=== PATIENT | male | born 1940 | race Caucasian/White ===

== ENCOUNTER 2016-12-16 07:59 | Inpatient (IN) | payer MEDICARE, OTHER ==
[2016-12-16] MEDS ORDERED: ASPIRIN 325 MG TABLET ONE ×2 (08:18→08:20)
[2016-12-16] MEDS ORDERED: LORAZEPAM 1 MG TABLET ONE (08:19)
[2016-12-16] MEDS ORDERED: ASPIRIN 325 MG TABLET PO ONE (08:30)
[2016-12-16] MEDS ORDERED: LISINOPRIL (10MG) 10 MG TABLET PO ONE (08:30)
[2016-12-16] MEDS ORDERED: LORAZEPAM 1 MG TABLET PO ONE (08:30)
[2016-12-16] MEDS ORDERED: SIMV20TA6 PO (08:54)
[2016-12-16] MEDS ORDERED: METF500T4 PO (08:54)
[2016-12-16] MEDS ORDERED: LISI10TA5 PO (08:54)
[2016-12-16] MEDS ORDERED: ASPI81TA2 PO (08:54)
[2016-12-16] MEDS ORDERED: ONDANSETRON HCL/PF 4 MG/2 ML VIAL IVP PRN (11:00)
[2016-12-16] MEDS ORDERED: ACETAMINOPHEN 325 MG TABLET PO PRN (11:00)
[2016-12-16] MEDS ORDERED: MAG HYDROX/AL HYDROX/SIMETH 30 ML UDC PO PRN (11:00)
[2016-12-16] MEDS ORDERED: MAGNESIUM HYDROXIDE 30 ML UDC PO PRN (11:00)
[2016-12-16] MEDS ORDERED: Z GUARD REMEDY 2 OZ OINT TP PRN (11:00)
[2016-12-16] MEDS ORDERED: NITROGLYCERIN 0.4 MG/TAB BOTTLE SL PRN (11:00)
[2016-12-16] MEDS ORDERED: DEXTROSE 50%-WATER 50 ML DISP.SYRIN IV PRN (11:00)
[2016-12-16] MEDS ORDERED: HYDROCODONE/APAP 5/325MG 1 EACH TABLET PO PRN (11:00)
[2016-12-16] MEDS ORDERED: MORPHINE SULFATE INJ 2 MG/ML DISP.SYRIN IV PRN (11:00)
[2016-12-16] MEDS: BLOOD SUGAR DIAGNOSTIC 1 EACH STRIP IN SCH ×3 (12:09→21:23)
[2016-12-16] MEDS: LISINOPRIL (10MG) 10 MG TABLET PO SCH (12:10)
[2016-12-16] MEDS: INSULIN REGULAR, HUMAN 100 UNIT/ML 3 ML VIAL SQ PRN (13:04)
[2016-12-16] MEDS ORDERED: PNEUMOCOCCAL 23-VAL P-SAC VAC 0.5 ML VIAL SQ ONE ×2 (15:30→19:00)
[2016-12-16] MEDS: SIMVASTATIN 20 MG TABLET PO SCH (17:29)
[2016-12-16] MEDS: METFORMIN 500 MG TABLET PO SCH (17:30)
[2016-12-16] MEDS ORDERED: ZOLPIDEM TARTRATE 5 MG TABLET PO PRN (22:00)
[2016-12-17] MEDS: BLOOD SUGAR DIAGNOSTIC 1 EACH STRIP IN SCH ×4 (05:29→22:00)
[2016-12-17] MEDS: ASPIRIN 81 MG TAB.CHEW PO SCH (08:29)
[2016-12-17] MEDS: PANTOPRAZOLE 40 MG TABLET.DR PO SCH (08:29)
[2016-12-17] MEDS: LISINOPRIL (10MG) 10 MG TABLET PO SCH (08:29)
[2016-12-17] MEDS: METFORMIN 500 MG TABLET PO SCH ×2 (08:29→16:57)
[2016-12-17] MEDS: SIMVASTATIN 20 MG TABLET PO SCH (17:00)
[2016-12-18] MEDS: PANTOPRAZOLE 40 MG TABLET.DR PO SCH (07:30)
[2016-12-18] MEDS ORDERED: REGADENOSON 0.4 MG/5 ML DISP.SYRIN IVP ONE (08:00)
[2016-12-18] MEDS: METFORMIN 500 MG TABLET PO SCH ×2 (09:00→16:17)
[2016-12-18] MEDS: LISINOPRIL (10MG) 10 MG TABLET PO SCH (09:00)
[2016-12-18] MEDS: ASPIRIN 81 MG TAB.CHEW PO SCH (09:00)
[2016-12-18] MEDS: BLOOD SUGAR DIAGNOSTIC 1 EACH STRIP IN SCH ×4 (09:47→22:09)
[2016-12-18] MEDS: SIMVASTATIN 20 MG TABLET PO SCH (18:57)
[2016-12-18] MEDS: INSULIN REGULAR, HUMAN 100 UNIT/ML 3 ML VIAL SQ PRN (18:58)
[2016-12-19] MEDS: BLOOD SUGAR DIAGNOSTIC 1 EACH STRIP IN SCH (06:34)
[2016-12-19] MEDS: METFORMIN 500 MG TABLET PO SCH (09:00)
[2016-12-19] MEDS: ASPIRIN 81 MG TAB.CHEW PO SCH (09:00)
[2016-12-19] MEDS: PANTOPRAZOLE 40 MG TABLET.DR PO SCH (09:00)
[2016-12-19] MEDS: LISINOPRIL (10MG) 10 MG TABLET PO SCH (09:00)
[2016-12-19] MEDS: CARVEDILOL 12.5 MG TABLET PO SCH ×2 (09:16→20:33)
[2016-12-19] MEDS ORDERED: DEXTROSE 50%-WATER 50 ML DISP.SYRIN IV PRN (11:00)
[2016-12-19] MEDS ORDERED: *INSULIN REGULAR(HUMULIN R)HUM 100 UNIT/ML VIAL SQ PRN (11:00)
[2016-12-19] MEDS ORDERED: BLOOD SUGAR DIAGNOSTIC 1 EACH STRIP IN SCH (12:00)
[2016-12-19] MEDS: BLOOD SUGAR DIAGNOSTIC 1 EACH STRIP VI SCH ×3 (12:11→22:00)
[2016-12-19] MEDS: INSULIN REGULAR, HUMAN 100 UNIT/ML 3 ML VIAL SQ PRN ×2 (12:11→17:32)
[2016-12-19] MEDS: SIMVASTATIN 20 MG TABLET PO SCH (17:13)
[2016-12-20] MEDS: BLOOD SUGAR DIAGNOSTIC 1 EACH STRIP VI SCH ×2 (07:17→12:00)
[2016-12-20] MEDS: PANTOPRAZOLE 40 MG TABLET.DR PO SCH (07:30)
[2016-12-20] MEDS: ASPIRIN 81 MG TAB.CHEW PO SCH (08:24)
[2016-12-20] MEDS: LISINOPRIL (10MG) 10 MG TABLET PO SCH (08:25)
[2016-12-20] MEDS: CARVEDILOL 12.5 MG TABLET PO SCH (08:25)
== END 2016-12-20 14:00 | disposition short-term general hospital (02) | DRG 303 ==
DX: I25.10 Atherosclerotic heart disease of native coronary artery without angina pectoris (principal); F41.9 Anxiety disorder, unspecified; E11.9 Type 2 diabetes mellitus without complications; E78.5 Hyperlipidemia, unspecified; I10 Essential (primary) hypertension; J45.909 Unspecified asthma, uncomplicated; I25.2 Old myocardial infarction; Z98.61 Coronary angioplasty status